=== PATIENT | male | born 1950 | race Caucasian/White ===

== ENCOUNTER 2016-12-27 13:00 | Inpatient (IN) | payer OTHER ==
--- NOTE | 2016-12-10 15:30 | Rehab Joint Replacement Pre-Op ---
Rehab Joint Replacement Pre-Op - Pre-Op Visit Reviewed Items Scheduled for Post Op Visit: No Gonzalez Hose/Garment Measurement TKR - Knee High: Yes Exercise Reviewed: Yes Stair Climbing: Yes Cane/Walker/Crutch Training: Yes Vend Equipment - Cane or Walker and OT Kit: N/A List of Venders in the Area: N/A Shower Chair Transfers: Yes Car Transfers: Yes Bed Transfers: Yes Medical History Forms Issued: N/A Functional Scale Forms Issued: N/A Additional Comments: The patient has 2 to 3 stairs at the enterance with one railing. The patient has a regular tub with shower. The patient has a walker, cane and tub chair he can borrow. The patient is unsure if his walker has wheels. The patient was informed that wheels could be vended if necessary when the patient is in the hospital.
[~2016-12-27 13:00] MED LIST: ACETAMINOPHEN 1000MG/100 ML PREMIX IV ONE; FAMOTIDINE 20MG TABLET PO ONE; MECLIZINE 25 MG TABLET PO ONE; METOCLOPRAMIDE 10 MG TABLET PO ONE; VANCOMYCIN HCL 1,000 MG in 0.9 % SODIUM CHLORIDE 250ML 250 ML IVPB ONE
[2016-12-28] MEDS ORDERED: VANCOMYCIN HCL 1,000 MG in 0.9 % SODIUM CHLORIDE 250ML 250 ML IVPB ONE (06:00)
[2016-12-28] MEDS ORDERED: MECLIZINE 25 MG TABLET PO ONE (06:00)
[2016-12-28] MEDS ORDERED: ACETAMINOPHEN 1000MG/100 ML PREMIX IV ONE (06:00)
[2016-12-28] MEDS ORDERED: FAMOTIDINE 20MG TABLET PO ONE (06:00)
[2016-12-28] MEDS ORDERED: METOCLOPRAMIDE 10 MG TABLET PO ONE (06:00)
[2016-12-28] MEDS ORDERED: BUPIVACAINE LIPOSOME 266MG/20ML VIAL IV ONE (10:35)
[2016-12-28] MEDS ORDERED: BUPIVACAINE 0.5% W/EPI MPF 30 ML VIAL IVP ONE ×2 (10:35→14:00)
[2016-12-28] MEDS ORDERED: TRANEXAMIC ACID 1,000 MG/10 ML ML IV ONE ×2 (10:35→14:00)
[2016-12-28 10:47] LABS: ABO GROUP O; ANTIBODY SCREEN NEGATIVE (NEGATIVE); RH TYPE POSITIVE
[2016-12-28] MEDS ORDERED: 0.9 % SODIUM CHLORIDE 1000ML 1,000 ML IV ONE (13:00)
[2016-12-28] MEDS ORDERED: PROMETHAZINE HCL 12.5 MG in 0.9 % SODIUM CHLORIDE 100ML 50 ML IVPB PRN (13:41)
[2016-12-28] MEDS ORDERED: NALOXONE 0.4 MG/1 ML VIAL IVP PRN (13:41)
[2016-12-28] MEDS ORDERED: HYDROMORPHONE HCL 2 MG/ML VIAL IM PRN ×2 (13:41→15:20)
[2016-12-28] MEDS ORDERED: ZOLPIDEM TARTRATE 5 MG TABLET PO PRN (13:41)
[2016-12-28] MEDS ORDERED: AL HYDROX/MAG HYDROX 30ML UD PO PRN (13:41)
[2016-12-28] MEDS ORDERED: MORPHINE SULFATE 5 MG/ML PFS IVP PRN ×4 (13:41→15:20)
[2016-12-28] MEDS ORDERED: METOCLOPRAMIDE HCL 10 MG/2 ML VIAL IVP PRN (13:41)
[2016-12-28] MEDS ORDERED: DIPHENHYDRAMINE HCL 25 MG CAPSULE PO PRN (13:41)
[2016-12-28] MEDS ORDERED: MAGNESIUM HYDROXIDE 30 ML UDC PO PRN (13:41)
[2016-12-28] MEDS ORDERED: BISACODYL 10 MG SUPP RC PRN (13:41)
[2016-12-28] MEDS ORDERED: ACETAMINOPHEN/CODEINE TABLET PO PRN ×2 (13:41→15:20)
[2016-12-28] MEDS ORDERED: KETOROLAC 30 MG/ML VIAL IVP PRN (13:51)
[2016-12-28] MEDS ORDERED: TRAMADOL HCL 50 MG TABLET PO PRN ×2 (13:51)
[2016-12-28] MEDS ORDERED: ACETAMINOPHEN 325 MG TAB PO PRN (13:51)
[2016-12-28] MEDS ORDERED: HYDROMORPHONE HCL 2 MG/ML VIAL IV ONE (14:00)
[2016-12-28] MEDS ORDERED: LIDOCAINE 2% MDV (20MG/ML) 20ML VIAL IV ONE (15:13)
[2016-12-28] MEDS ORDERED: MIDAZOLAM HCL 2MG/2ML VIAL IV ONE (15:13)
[2016-12-28] MEDS ORDERED: *PACU ONLY* KETAMINE HCL 10 MG/ML (20ML) VIAL IV ONE (15:13)
[2016-12-28] MEDS ORDERED: FENTANYL PF 100MCG/2ML VIAL IV ONE (15:13)
[2016-12-28] MEDS ORDERED: PROPOFOL 10 MG/ML VIAL IV ONE (15:13)
[2016-12-28] MEDS ORDERED: HYDROMORPHONE HCL 1 MG/ML CPJ IM PRN (15:19)
[2016-12-28] MEDS ORDERED: HYDROCODONE/APAP 5/325MG TABLET PO PRN ×2 (15:20)
--- NOTE | 2016-12-28 16:51 | Rehab Evaluation ---
Patient Information - Patient Information Diagnosis: LTKA Ordered Treatment: PT Evaluate and Treat Status: Initial Evaluation Surgery: Yes Date of Surgery: 12/28/16 Past Medical/Surgical Hx: PAST MEDICAL/SURGICAL HISTORY Past Surgical History cholecystectomy;hernia sx; CABG, MVR left knee scope; vasectomy PMH - Respiratory Hx Respiratory Disorders Yes Hx Chronic Obstructive Yes Pulmonary Disease (COPD) Hx Sleep Apnea Yes Hx of CPAP Yes Comment: hx sinusitis PMH - Cardiovascular Hx Cardiovascular Disorders Yes Hx Chest Pain Yes Hx Heart Attack Yes Hx of Mitral Valve Prolapse Yes Exercise Tolerance Good Comment: mitral valve repair PMH - Neuro Hx Neurological Disorders No PMH - GI Hx Gastrointestinal Disorders Yes Hx Celiac Disease Yes Hx Weight Loss/Weight Gain Yes: SINCE QUIT SMOKING YR AGO PMH - Hx Genitourinary Disorders No PMH - Endocrine Hx Endocrine Disorders No PMH - Musculoskeletal Hx Musculoskeletal Disorders Yes Hx Arthritis Yes: left knee osteoarthritis PMH - Psych Hx Psychiatric Problems No PMH - Hematology/Oncology Hx Hematology/Oncology No Disorders Premorbid Status: Detail (The patient was independent with all mobility.) Social History: Detail (The patient lives in a one story homewith spouse. The patient has 2 to 3 steps at the enterance with a railing. The patient has a regular bath/tub combination and a regular toilet. The patient has a walker with wheels.) Precautions: [place], Other (WBAT L LE) - Time With Patient Total Time Spent With Patient (Min): 30 Treatment Procedures: Detail (PT Initial Evaluation and Therapuetic exercises including: ankle pumps x 5 reps, gluteal sets x 5 reps, SLR x 2 reps, quad setsx 2 reps and heel slides x 1 rep.) Subjective Information - Subjective Information Per Patient (The patient had complaints of level 3/4 L knee pain. The patient complained of lightheadness when sitting on the edge of the bed.) Objective Data - Pain Pain Present: Yes Pain Intensity: 4 Pain Scale Used: Numeric (1 - 10) - Mental Status Patient Orientation: Oriented x3 - ROM Not within normal limits (The patient's L knee was not formally measured, however extension was aproximately -10 degrees and flexion 45 degrees with pain with both movements.) - Strength/Tone Not within normal limits (The patient's L LE was not formally tested however the patient was able to acheive a SLR and a strong quad contraction. The patient's L LE was functional. The patient's bilateral UE strength and R LE strength were generally 4+ to 5/5.) - Coordination Appears within normal limits for therapeutic activities - Bed Mobility Independent (The patient was independent with supine to and from sit transfer and scooting up in bed without use of trapeze.) - Transfers Needs Assist (The patient did not stand) - Balance Balance Sitting: Good (The patient sat on the edge of the bed x 3 minutes. The patient complained of lightheadness and felt he couldn't stand. The patient's lightheadness did not subside.) - Sensation Intact (The patient's L LE sensation was intact to light touch.) - Gait Detail (The patient did not ambulate due to lightheadedness.) Therapy Assessment - Therapy Assessment Detail (The patient was independent with bed mobility and exhibited functional LE strength. The patient was unable to ambulate due to lightheadness however feel the patient will progress well.) Problem List - Problem List Physical Therapy Problem List: Detail (1) Decreased L LE strength 2) Decreased L knee PROM 3) Assistance with ambulation and transfers) Goals - Goals Physical Therapy Goals: 1) Independent with ambulation on levels and stairs with assistive device WBAT on the L LE. 2) Independent with all transfers. 3) Independent with HEP of L knee AROM and LE strengthening exercises. Prognosis - Prognosis Good Plan - Plan Physical Therapy Plan: PT twice daily for transfer training, gait training on levels and stairs and instruction in HEP until goals are met.
[2016-12-28] MEDS: ONDANSETRON HCL IV 4 MG/2 ML VIAL IVP PRN (19:15)
[2016-12-28] MEDS: HYDROCODONE/APAP 7.5/325MG TABLET PO PRN ×2 (21:28→22:47)
[2016-12-28] MEDS: FERROUS SULFATE 325 MG TAB PO SCH (21:30)
[2016-12-28] MEDS: VANCOMYCIN HCL 1 MG in 0.9 % SODIUM CHLORIDE 250ML 250 ML IVPB SCH (21:33)
[2016-12-28] MEDS: DEXTROSE 5 % AND 0.9 % NACL 1,000 ML IV PRN (22:52)
[2016-12-28] MEDS: DOCUSATE SODIUM 100 MG CAPSULE PO SCH (22:58)
[2016-12-29] MEDS: HYDROCODONE/APAP 7.5/325MG TABLET PO PRN ×3 (02:37→17:05)
[2016-12-29] MEDS: ONDANSETRON HCL IV 4 MG/2 ML VIAL IVP PRN (02:38)
[2016-12-29 06:44] LABS: HEMATOCRIT 36.7 % (42.0-52.0)
[2016-12-29] MEDS ORDERED: PANTOPRAZOLE SODIUM 40 MG TABLET PO SCH (07:00)
--- NOTE | 2016-12-29 07:48 | Rehab Evaluation ---
Patient Information - Patient Information Diagnosis: LTKA Ordered Treatment: OT Evaluate and Treat Status: Initial Evaluation Surgery: Yes (left TKA) Date of Surgery: 12/28/16 Past Medical/Surgical Hx: PAST MEDICAL/SURGICAL HISTORY Past Surgical History cholecystectomy;hernia sx; CABG, MVR left knee scope; vasectomy PMH - Respiratory Hx Respiratory Disorders Yes Hx Chronic Obstructive Yes Pulmonary Disease (COPD) Hx Sleep Apnea Yes Hx of CPAP Yes Comment: hx sinusitis PMH - Cardiovascular Hx Cardiovascular Disorders Yes Hx Chest Pain Yes Hx Heart Attack Yes Hx of Mitral Valve Prolapse Yes Exercise Tolerance Good Comment: mitral valve repair PMH - Neuro Hx Neurological Disorders No PMH - GI Hx Gastrointestinal Disorders Yes Hx Celiac Disease Yes Hx Weight Loss/Weight Gain Yes: SINCE QUIT SMOKING YR AGO PMH - Hx Genitourinary Disorders No PMH - Endocrine Hx Endocrine Disorders No PMH - Musculoskeletal Hx Musculoskeletal Disorders Yes Hx Arthritis Yes: left knee osteoarthritis PMH - Psych Hx Psychiatric Problems No PMH - Hematology/Oncology Hx Hematology/Oncology No Disorders Premorbid Status: Detail (Pt lives with spouse in a 1 story house with 2-3 steps and 1 handrailing at the entrance. He has a tub/shower combination with seat but usually stands to shower. He was Ind with all ADLs and mobility, worked outside the home and was Ind with driving. The patient has a 2 wheeled walker.) Social History: Detail (The patient reports his and additional family member will be available after discharge.) Precautions: [place], [place], Other (WBAT L LE) - Time With Patient Total Time Spent With Patient (Min): 30 Treatment Procedures: Detail (OT eval low complexity) Subjective Information - Subjective Information Per Patient Objective Data - Pain Pain Present: Yes (3/10 in left knee) - Mental Status Patient Orientation: Oriented x3 - Visual Perception Appears within normal limits for therapeutic activities - ROM Within normal limits (WNL per observation) - Strength/Tone Within normal limits (WNL per observation) - Coordination Appears within normal limits for therapeutic activities - Bed Mobility Independent (Ind with supine to sit) - Transfers Needs Assist (SBA for sit to stand due to reports of lightheadedness yesterday) - Balance Balance Sitting: Good Balance Standing: Good - Sensation Intact - Gait Detail (Pt able to amb 5 feet to chair with 2 wheeled walker and CG assist.) - ADL's/IADL's Detail (Pt able to use urinal Indly, donned shorts with verbal cues for modified dressing technique. He has no concerns about self cares after discharge.) Therapy Assessment - Therapy Assessment Detail (Pt demonstrates Ind with bed mobility and partial LE dressing. He was educated re: dressing techniques and equipment options. Pt verbalizes learning. ) Problem List - Problem List Physical Therapy Problem List: Detail (1) Decreased L LE strength 2) Decreased L knee PROM 3) Assistance with ambulation and transfers) Occupational Therapy Problem List: Detail (No problems identified at this time.) Goals - Goals Physical Therapy Goals: 1) Independent with ambulation on levels and stairs with assistive device WBAT on the L LE. 2) Independent with all transfers. 3) Independent with HEP of L knee AROM and LE strengthening exercises. Occupational Therapy Goals: No goals identified at this time. Prognosis - Prognosis Good Plan - Plan Physical Therapy Plan: PT twice daily for transfer training, gait training on levels and stairs and instruction in HEP until goals are met. Occupational Therapy Plan: No further OT recommended at this time. Thank you for this referral.
[2016-12-29] MEDS: DEXTROSE 5 % AND 0.9 % NACL 1,000 ML IV PRN (07:57)
[2016-12-29] MEDS ORDERED: CELECOXIB 100 MG CAPSULE PO SCH (10:00)
[2016-12-29] MEDS ORDERED: RIVAROXABAN 10 MG TABLET PO SCH (10:00)
[2016-12-29] MEDS: DOCUSATE SODIUM 100 MG CAPSULE PO SCH (10:25)
[2016-12-29] MEDS: FERROUS SULFATE 325 MG TAB PO SCH (10:25)
[2016-12-29] MEDS: VANCOMYCIN HCL 1 MG in 0.9 % SODIUM CHLORIDE 250ML 250 ML IVPB SCH (10:25)
--- NOTE | 2016-12-29 11:45 | Physical Therapy Tx Note ---
Physical Therapy Tx Note - Treatment Note Tolerated: Fair (Lots of pain with weightbearing this am. Only able to walk short distance with FWW this am.) Total Time Spent With Patient: 20 Physical Therapy Tx Note: Detail (Patient seen bedside and had just returned to bed from sitting up in chair and wanted to rest so came back an hour later: patient able to move supine to sit independently, sit to stand with verbal cues and CGA, ambulated with FWW and assist of PT for pushing IV pole and CGA to doorway of room and just around corner then came back to bed secondary to significantly increased pain in knee with weightbearing, even WBAT. Ambulated about 40 feet total. Into bed with min assist for left LE then worked through exercises: quad, glut and ham sets then SLR, heel slides with assist and ankle pumps independently. In quite a lot of pain so requested for nurse to check if ok now for meds. Replaced cryocuff with nurse assist and compressive stockings, tray table close and call light close.) Physical Therapy Problem List: Detail (1) Decreased L LE strength 2) Decreased L knee PROM 3) Assistance with ambulation and transfers) Physical Therapy Goals: 1) Independent with ambulation on levels and stairs with assistive device WBAT on the L LE. 2) Independent with all transfers. 3) Independent with HEP of L knee AROM and LE strengthening exercises. Prognosis: Good (Patient should do better as up weightbearing more, but having a rough time this am.) Physical Therapy Plan: PT twice daily for transfer training, gait training on levels and stairs and instruction in HEP until goals are met.
--- NOTE | 2016-12-29 13:14 | Discharge Note ---
VTE H&P Assessment - Risk for VTE Risk for VTE: Yes Risk Level: High Risk Assessment Date: 12/29/16 Risk Assessment Time: 13:12 VTE Orders Placed or Will Be Placed: Yes Discharge Medications - Discharge Medications Home Medications: Ambulatory Orders Ascorbic Acid [Vitamin C] 12/28/16 [Last Taken Unknown] Ascorbic Acid [Vitamin C] 1,000 PO DAILY 12/28/16 [Last Taken Unknown] Atorvastatin Calcium 20 mg PO QHS 12/28/16 [Last Taken Unknown] Cholecalciferol (Vitamin D3) [Vitamin D3] 2,000 PO DAILY 12/28/16 [Last Taken Unknown] Omeprazole [Prilosec] 20 mg PO DAILY 12/28/16 [Last Taken Unknown] Sennosides [Senna Laxative] 8.6 mg PO DAILY 12/28/16 [Last Taken Unknown] Discharge Note - Date Date of Discharge Note: 12/29/16 Disposition: Home Health Service Condition: (2) Stable
--- NOTE | 2016-12-29 14:51 | Physical Therapy Tx Note ---
Physical Therapy Tx Note - Treatment Note Tolerated: Good Total Time Spent With Patient: 45 Physical Therapy Tx Note: Detail (Pt was supine resting in bed upon arrival. Pt completed ex's of ankle pumps, heel slides, quad sets, glute sets, all x 10 in supine. Pt transfered supine to sit at edge of bed, independently with use of trapeze, Sit to stand Independently. Gait with contact guard assist, x 100 ft. with one rest period with front wheeled walker. Pt ambulated up and down one flight of stairs with walker with contact guard assist. Pt requires verbal cues only for weight bearing through surgical leg. Pt returned to bed Independent with all transfers. Pt was given nursing call button, and bed side table with personal belongings within reach. Reviewed HEP with pt. who stated no complaints with understanding ex's. Pt was given an ice pack to left knee as pt' s cooling machine was not functioning. Pt completed all requirements for PT to be discharged.) Physical Therapy Problem List: Detail (1) Decreased L LE strength 2) Decreased L knee PROM 3) Assistance with ambulation and transfers) Physical Therapy Goals: 1) Independent with ambulation on levels and stairs with assistive device WBAT on the L LE. 2) Independent with all transfers. 3) Independent with HEP of L knee AROM and LE strengthening exercises. Prognosis: Good Physical Therapy Plan: PT twice daily for transfer training, gait training on levels and stairs and instruction in HEP until goals are met.
--- NOTE | 2016-12-31 15:51 | Discharge Summary ---
DATE OF ADMISSION: 12/28/2016 HISTORY: This is a 66-year-old male with end-stage left knee arthrosis. Treatment consisted of left total knee arthroplasty. HOSPITAL COURSE: The patient admitted on the day of procedure, 12/28/2016, tolerated well. Postop neurovascularly intact. He had Xarelto for DVT prophylaxis. Pain medications. Continue preadmission home medications and to the floor for total knee rehab protocol. Hospital course went uncomplicated. He had acute , postop anemic. Hemoglobin was 12 postop day 1. He did well with therapy. Eventually discharged in the afternoon after therapy. Discharged home with home PT with the nurse with [facility]. Obtain p.r.n. medications plus pain pills, iron, and Xarelto for a total of 2 weeks postop. He will follow up in 1 month. He is stable on postop day 14. Zen Garcia MD [facility]
--- NOTE | 2016-12-31 16:11 | Operative Note ---
DATE OF SURGERY: 12/28/2016 PREOPERATIVE DIAGNOSIS: Left knee arthrosis. POSTOPERATIVE DIAGNOSIS: Left knee arthrosis. PROCEDURE: Left total knee arthroplasty. Surgeon: Zen Garcia M.D. Anesthesia: Spinal. Anesthesia Provider: DAR Fonseca COMPLICATIONS: None. Blood Loss: Minimal. TOURNIQUET TIME: 60 minutes. OPERATIVE FINDINGS: Bone on bone medial compartment arthrosis. COMPONENTS PLACED: Two grams vancomycin cement [employer]Nephew Oxinium Journey size 7 femoral component, size 7 tibial baseplate, 10 mm thick tibial appliance and a 35 mm cement patella component. Indications for Operation: A 66-year-old male who is well-known to myself. He has had left knee pain from arthrosis for several years, failed nonoperative treatments. Had multiple injections and wished to proceed with knee replacement at this time. I explained all risks and benefits or surgery in detail, diagnosis and procedures including but not limited to infection, nerve injury, vessel injury, persistent pain, numbness and tingling in his knee, periprosthetic fracture, need for resection arthroplasty, components could in fact loosen, nerve injury, vessel and blood clot, and need for further procedures and all of his questions were answered and he and agreed to procedure. PROCEDURE: The patient was brought into the OR and placed in the supine position by Department of Surgery. Spinal anesthesia induced and his left lower extremity prepped and draped in the usual sterile fashion. The left knee was prepped using Chloraprep and draped. An intraoperative timeout was performed. Next the leg was exsanguinated with Esmarch, the knee was flexed and tourniquet inflated to 250 mmHg pressure. We made an anterior incision in the skin. This was infiltrated with 0.5% Marcaine with epi. Skin and subcutaneous tissue dissected down. Incised the capsule from the medial patella to tibial tubercle. Incised the vastus medialis in line with its fibers in a mid vastus approach. Partially everted the patella. Partially resected the peripatellar fat pad. Elevated capsule subperiosteally medially and the flexed knee at bone on bone medial compartment arthrosis. We drilled an intracondylar hole and inserted the intramedullary guide nimesh with 6 degree cutting block in line with the distal femoral condyles and pinned it into the +2 mm position. Next was the cup to distal femoral condyle. Next placed a sizing jig in the distal femoral condyles. Sized to a size 7 through the previously placed pin holes and placed a size 7 cutting jig. We dialed in the anterior cut so it would come out flush without notching using our resection blade and we cut the anterior cut. It was a good flush cut. We pinned the cutting jig and cut the remainder with chamfer cuts in the usual fashion. Next we placed a size 7 trial component, centered it, pinned it. Removed osteophytes off the periphery, inserted the resection collar, reamed out and box osteotome, cruciate bone block. Attention to the tibial . Alignment jig with parapetallar groove 2 fingerbreadths distally and referenced for a 7 mm cut off the high lateral plateau. We pinned the cutting jig in place provisionally 2 anterior and posterior pins. We then rechecked the alignment of the cutting jig using a dry 79 tibial to gain anatomic access. Cross-pinned the cutting jig, completed fixation, cut cut the tibia. Next we removed osteophytes off the posterior femoral condyle, checked flexion and extension gaps which were tight medially. We went through a deep MCL lengthening and release, loosening osteophytes previously medially and this allowed us to balance off to a 10 mm thick poly insert from a 9. This allowed for 2 to 3 mm varus/valgus laxity and flexion and extension. Overall alignment cuts and extension was in anatomic valgus orientation with alignment nimesh centered on the hip joint and ankle joint. Next we took knee in flexion, sized the tibial baseplate to a size 7. Replaced all trial components and set the rotation of the tibial baseplate to gain extension using the alignment nimesh centered on the hip joint and ankle joint, marked with electrocautery. Marked the anterior tibial cortex off the laser marques on the marques of the tibia baseplate. Attention turned to the patella. We then measured the patella. It was 25 mm. Setting the cutting jig at 16 mm to allow for a 9 mm thick patellar insert. We cut the patella with the cutting jig, chamfered off the lateral patellar facet, re-measured. It was right on 15 to 16. Measured to be 35 mm diameter. Medialized as much as possible and drilled 3 peg holes. Next then we placed the trial patella component and did a trial range of motion and mixed cement. The patella tracked nicely hands free with full extension to 0, flexion to 140 to 150 degrees. Next we removed all trial components, distracted and flexed the knee, exposed the proximal tibia. We irrigated copiously. Seated the tibial baseplate up to the previous electrocautery marques. Pinned it in place and drilled out with Keel punch and Keel hole. Placed the bone plug in the femoral canal hole. Placed the drill in the tibial Keel hole and irrigated copiously bony surfaces with pulse lavage antibiotic solution. Changed gloves, gown and clean sheets. bolsters packed on the tibial component and then the femoral component. Placed the trial tibial poly liner and then held the knee in extension until the cement hardened and then clamped down the patella component while the cement hardened. Took the knee in flexion. Distracted the knee with bone hook and sponge. Removed all excess cement around the edges of the components meticulously. We irrigated copiously. We then meticulously injected with several sticks, 2 cm deep or 2 cm apart of our mixture of tranexamic acid, 2 g, 20 mL of 0.5% Marcaine with epi, and Exparel around the entire periphery, posterior capsular recesses, medial and lateral periosteum of the knee and quadriceps and incision. We then distracted the knee bone hook and sponge and secured the real tibial poly insert. We verified it was interlocking medially and laterally. Final range of motion . Irrigated copiously. Closed the capsule securely using running #2 . Closed the skin deep with 2-0 Vicryl and joshua. Injected the wound again with 0.5% Marcaine with epi. Sterile dressing applied and Alexx wrap. The patient tolerated the procedures well. No intraoperative complication. The sponge, needle and instrument counts correct. Recovery stable. Neuro is intact. Discharged to the floor for pain control and IV antibiotics, likely discharge tomorrow home. MD SUE Finch
== END 2016-12-29 18:05 | disposition home health service (06) | DRG 470 ==
LOC: MEDSURG 12-28 08:39
PROVIDERS: ADMIT Orthopaedic Surgery; ATTEND Orthopaedic Surgery
PROC: 0SRD0J9 Replacement of Left Knee Joint with Synthetic Substitute, Cemented, Open Approach (ICD-10-PCS; principal; 2016-12-28 11:30)
DX: M17.12 Unilateral primary osteoarthritis, left knee (principal); I27.2 Other secondary pulmonary hypertension; I07.1 Rheumatic tricuspid insufficiency; J44.9 Chronic obstructive pulmonary disease, unspecified; I25.10 Atherosclerotic heart disease of native coronary artery without angina pectoris; F17.200 Nicotine dependence, unspecified, uncomplicated
CPT/HCPCS: 85014; 85018; 86850; 86900; 86901; 97110; 97116; 97165; J2405; J2550; J7042; J7050